=== PATIENT | male | born 1995 | race African-American/Black ===

== ENCOUNTER → 2019-04-14 | Outpatient (REF) ==
[2019-04-14 12:02] LABS: ARTERIAL BLD GAS O2 SATURATION 91.4 % (92-100); ARTERIAL BLOOD GAS BASE EXCESS -3.4 (-2-2); ARTERIAL BLOOD GAS HCO3 23.5 meq/L (22-26); ARTERIAL BLOOD GAS PCO2 49.2 mmHg (35-45); ARTERIAL BLOOD GAS PO2 73.3 mmHg (80-100)
--- NOTE | 2019-04-14 12:06 | NUR ---
PER LAURI GAYTAN RN ABG RESULTS RAN FOR [facility], PATIENT REGISTERED AND CHARGED FOR LAB OUTPATIENT. ABG RECEIVED AND RAN AT 11:38. RESULTS CALLED OVER TO RN AT SURGICAL CENTER AT 11:40. PATIENT THEN REGISTERED OUTPATIENT, CHARGED, AND RESULTS FAXED W/ CONFIRMATION AT 12:06. BONILLA CARRIZALES, [employer]
== END ==
LOC: COL.CARD 11:58 → EDSTATUS 04-15 16:13
PROVIDERS: Internal Medicine Nephrology
DX: R79.81 Abnormal blood-gas level (principal)

== ENCOUNTER → 2019-07-20 | Outpatient (CLI) | payer OTHER | LOC: COL.RAD 12:32 | DX: M25.552 Pain in left hip (principal) | CPT/HCPCS: J3301; Q9967 ==